=== PATIENT | male | born 1990 | race Two or more races ===

== ENCOUNTER 2016-09-27 13:22 | Inpatient (IN) | payer BC ==
[~2016-09-27] VITALS: Ht 175.3 cm; Wt 84.1 kg
--- NOTE | ~2016-09-27 | ER ---
PATIENT'S NAME: JOVON [facility] AGE: 26 Y [address] ROOM: [place] [address] LOCATION: GPCU ADMIT DATE: 09/27/2016 ER/Outpatient Report DISCHARGE DATE: FAMILY PHYSICIAN: PHYSICIAN, UNKNOWN ATTENDING PHYSICIAN: Bipin Vázquez Time of Arrival: 1320 hours. Time of Evaluation: 1320 hours. CHIEF COMPLAINT: Spontaneous pneumo. HISTORY OF PRESENT ILLNESS: The patient arrived per EMS transfer from [facility]. The patient states this morning, he got up out of bed, was feeling okay, coughed a couple of times, developed left-sided chest pain and left posterior back pain. Did go to work. The pain worsened, shortness of breath worsened. He did have a friend take him to [facility] where he was evaluated. He states his shortness of breath got worse when he is up walking around. They did a chest x-ray and found that he had a spontaneous pneumothorax. They did place a chest tube in. They called and talked with Dr. Nevarez. Dr. Nevarez had contacted Dr. Vázquez to let him know that the patient was come in to be seen and further evaluated and treated. The patient states he has never had any problems like this in the past. States he has been feeling fine prior to all this. ALLERGIES: NO KNOWN ALLERGIES. MEDICATIONS: No current medications. PAST MEDICAL HISTORY: Benign. PAST SURGICAL HISTORY: Negative. REVIEW OF SYSTEMS: All negative other than those mentioned in the HPI. PHYSICAL EXAMINATION: VITAL SIGNS: He weights 85 kg, blood pressure is 117/88, pulse of 56, respirations 22, temperature of 97.4 tympanic, O2 saturations 100% on 2 L nasal cannula. GENERAL: The patient is awake, alert, and oriented x4. PATIENT'S NAME: JOVON [facility] AGE: 26 Y [address] ROOM: [place] [address] LOCATION: GPCU ADMIT DATE: 09/27/2016 ER/Outpatient Report DISCHARGE DATE: FAMILY PHYSICIAN: PHYSICIAN, UNKNOWN ATTENDING PHYSICIAN: Bipin Vázquez SKIN: His skin is pink, warm, and dry. RESPIRATIONS: Even and nonlabored. Chest tube was connected to suction. When suction is off he does appear to have an air leak. HEART: Regular rate and rhythm. ABDOMEN: Soft, nondistended. Bowel sounds are present. No peripheral edema noted. EMERGENCY DEPARTMENT COURSE: Chest x-ray was completed at the bed side. Dr. Vázquez was contacted regarding the patient. Dr. Vázquez did come down and evaluated the patient and adjusted the chest tube. IMPRESSION: Spontaneous pneumothorax on the left. PLAN: The patient to be admitted to PCU, followed by Dr. Vázquez. SHEREEN GUERRA APRN FOR MILO NEVAREZ MD DJ/modl /[id number] I have personally evaluated this patient. I discussed the patient's care with the JUNIOR COPYWRITER and agree with the assessment and plan as documented above. Milo Nevarez MD d: 09/27/16 2223 t: 10/12/16 0816, OUTPATIENT REPORT
--- NOTE | ~2016-09-27 | HP ---
PATIENT'S NAME: JOSE SIGALA [facility] AGE: 26 Y [address] ROOM: [place] [address] LOCATION: GPCU ADMIT DATE: 09/27/2016 History & Physical DISCHARGE DATE: 10/01/2016 FAMILY PHYSICIAN: Physician, Unknown ATTENDING PHYSICIAN: Bipin Jackson DATE OF SERVICE: REASON FOR ADMISSION: Left spontaneous pneumothorax. HISTORY OF PRESENT ILLNESS: The patient is a 26-year-old white male who resides in [place]. On the morning of September 27, 2016, he woke up as usual, had a couple of cough, and instantly experienced chest pain and left-sided shoulder pain. As time went on, he developed shortness of breath. He had a patient drive him to the emergency department in [place], [place] where he was evaluated and found to have a spontaneous left-sided pneumothorax. A chest tube was placed in the emergency department at the [facility]. [facility] was contacted for transfer of the patient to our emergency department. The patient was met by Dr. Loya who evaluated the patient in the emergency department and consulted Dr. Jackson. Upon arrival, Dr. Jackson reviewed the chest x-ray taken upon the patient's arrival. There was a large left-sided pneumothorax. There was no shift of the mediastinal structures. Dr. Jackson adjusted the connections on the chest tube to the canister and a subsequent chest x-ray showed near complete expansion of the left lung. The patient was transferred to the progressive care floor. PAST MEDICAL HISTORY: Illnesses: Tobaccoism, seasonal allergies, anxiety. ALLERGIES: NO KNOWN DRUG ALLERGIES. SURGERIES/PROCEDURES: None. SOCIAL HISTORY: The patient is single. He resides in [place], [place]. He works as a manual track laborer. He smokes a pack of cigarettes a day and has done so for 10 years. He denies use of illegal drugs. He does drink beer nearly daily. FAMILY HISTORY: PATIENT'S NAME: JOSE SIGALA [facility] AGE: 26 Y [address] ROOM: [place] [address] LOCATION: GPCU ADMIT DATE: 09/27/2016 History & Physical DISCHARGE DATE: 10/01/2016 FAMILY PHYSICIAN: Physician, Unknown ATTENDING PHYSICIAN: Bipin Jackson The patient states his parents and siblings are all healthy. MEDICATIONS: None. SYSTEM REVIEW: The patient's history was reviewed and negative except for the pertinent positives in the HPI. PHYSICAL EXAMINATION: VITAL SIGNS: Blood pressure 122/60, pulse is 63, respirations 16, temp 97.9, O2 saturations 96% on room air. Height is 5 feet 9 inches. Weight is 190 pounds. GENERAL: He is pleasant, somewhat anxious. His mother, sister, and brother are present at the bedside. Patient appears his stated age. HEENT: Normocephalic with EOMI's intact. Conjunctivae clear. LUNGS: Overall clear to auscultation bilaterally. CARDIOVASCULAR: Regular rate and rhythm. ABDOMEN: Soft, nontender by 4 quadrants with positive bowel sounds throughout. EXTREMITIES: No varicosities or edema. MUSCULOSKELETAL: Good range of motion of bilateral upper and lower extremities. NEUROLOGIC: Alert and oriented x3 with symmetrical strength throughout. SKIN: No suspicious skin lesions. LABORATORY AND TEST RESULTS: X-rays as per HPI. IMPRESSION: 1. Left spontaneous pneumothorax. 2. Tobaccoism. RECOMMENDATION AND PLANS: Dr. Jackson did admit the patient to the progressive care floor until which time the left spontaneous pneumothorax has resolved. He will be started on a regular diet. We will follow up with a chest x-ray in the morning. We will start Toradol 15 mg q.6 hours x8 doses as well as [place] 5/325 one to two every 4 to 6 hours as needed for pain. Chest tube will remain to 20 cm suction. The patient and family made abreast of the plan and do agree. AMBREEN SANTIAGO APRN FOR BIPIN JACKSON DO PATIENT'S NAME: JOSE SIGALA [facility] AGE: 26 Y [address] ROOM: [id number] [place] [id number] LOCATION: [facility] ADMIT DATE: 09/27/2016 History & Physical DISCHARGE DATE: 10/01/2016 FAMILY PHYSICIAN: Physician, Unknown ATTENDING PHYSICIAN: Bipin Jackson/juliana /[id number] D: [id number] T: [id number] HISTORY & PHYSICAL
--- NOTE | ~2016-09-27 | DS ---
PATIENT'S NAME: JOSE SIGALA [facility] AGE: 26 Y [address] ROOM: [id number] [place], [place] [address] LOCATION: GPCU ADMIT DATE: 09/27/2016 Discharge Summary DISCHARGE DATE: 10/01/2016 FAMILY PHYSICIAN: Physician, Unknown ATTENDING PHYSICIAN: Bipin Vázquez HISTORY OF PRESENT ILLNESS: The patient is a 26-year-old white male, who was transferred here from the [facility] and the patient was found to have a left-sided spontaneous pneumothorax. They did place a chest tube while he was in the emergency department in [place]. He did not have resolution of his pneumothorax at that time and they sent him here for a higher level of care. He presented to our emergency department. Dr. Vázquez accepted the patient in transfer and for admission. When the patient was in the emergency department with Dr. Vázquez, a chest x-ray had been obtained upon the patient's arrival. It did show a large pneumothorax. There were some connection issues with the chest tube and after working with these connections a followup chest x-ray showed new remediation of the pneumothorax. The patient was admitted to the progressive care floor with the chest tube to suction. The following day, the morning chest x-ray revealed complete resolution of the pneumothorax and the chest tube was placed to water seal. This patient remained in-house. The subsequent chest x-ray was concerning for apical pneumothorax. Water could be heard of bubbling from the chamber. The x-ray also indicated slight movement of the internal catheter. This was repositioned and stabilized. This was discussed with the patient and his family. He remained in-house and the following day the chest x-ray still revealed a slight air leak. We did have a near code-arce situation with the patient as he was quite angry that the chest tube was not coming out and that he was not going home that day. Multiple disciplines had came to discuss this with the patient and the family. The family did leave the facility as they were upset with patient's behavior and level of anger. As the day went on, however, the patient did apologize and did calm down. The following day, his chest x-ray showed resolution of the pneumothorax. The chest tube was indeed discontinued and the patient was discharged to home. Discharge was on 10/01/2016. DISCHARGE ORDERS: Include a diet with no restrictions. Activities with no restrictions. The patient was told to remove the chest tube dressing in 48 hours. He is to not pull, push, or lift with the left upper extremity for the next 48 hours more than 5 pounds. He is to consider smoking cessation. He may shower after the dressing is removed. FINAL DIAGNOSES: Include left spontaneous pneumothorax and tobaccoism. DISCHARGE MEDICATIONS: Include no medications. PATIENT'S NAME: JOSE SIGALA [facility] AGE: 26 Y [address] ROOM: [place] [address] [facility] ADMIT DATE: 09/27/2016 Discharge Summary DISCHARGE DATE: 10/01/2016 FAMILY PHYSICIAN: Physician, Unknown ATTENDING PHYSICIAN: Bipin Vázquez The patient was discharged in stable condition. AMBREEN SANTIAGO APRN FOR DO LUKE COTTON/modl /[id number] d: 10/19/16 0945 t: 10/20/16 1216, DISCHARGE SUMMARY
--- NOTE | 2016-09-27 17:36 | NUR ---
Patient is 26 yo male admitted for spontaneous tension pneumothorax this am after he awoke, coughed a couple of times and started having chest pains. Patient has saline lock in right hand without erythema or edema noted at site. patient is a very pleasant young man. Education is given as documented. patient denies questions. pneumatics are on bilat. call light is within reach. patient denies needs. report is given to CATA Gonzalez.
--- NOTE | 2016-09-27 21:29 | NUR ---
Significant Event: A/O x3, cooperative with cares. VSS, SBP 122, HR 69, on room air. L) lateral chest tube to suction, no crepitus noted. Up with SBA. Family at bedside Follow up:
--- NOTE | 2016-09-28 05:21 | NUR ---
Significant Event: PATIENT IS A/O X3. VSS. HR 50-80'S. SBP 110-120'S. AFEBRILE. 02 SATS IN MID TO UPPER 90'S ON RA. C/O PAIN TO CHEST TUBE SITE. DANILO TORADOL GIVEN AND 1 TAB NORCO GIVEN X1 WITH RELIEF. LUNGS COARSE/CRACKLES TO LEFT SIDE. CHEST TUBE TO SUCTION WITH 33ML SEROUS DRAINAGED. NO CREPITUS NOTED. DRESSING C/D/I. UP WITH SBA. BOWELS ACTIVE. IV TO RIGHT HAND SL. Follow up: CONTINUE TO MONITOR PER PLAN OF CARE.
--- NOTE | 2016-09-28 11:56 | NUR ---
Introduced self and care management services to patient and family at bedside. Lives in [place], denies concerns about going home on discharge, denies anticipating any needs. Will follow and assist with dc planning as needs identified.
--- NOTE | 2016-09-28 16:39 | NUR ---
Significant Event: A/OX3, VSS ON RA. NO COMPLAINTS ON PAIN, PT. DOES RECEIVE SCHEDULED TORADOL 15MG Q6HR, HAS 4 DOSES LEFT. NO ADDITIONAL PAIN MEDS GIVEN. CHEST TUBE WAS PUT TO WATER SEAL, DRESSING IS C/D/I, FLUCUATIONS WITH RESPIRATIONS NOTED & SMALL AMOUNT OF BUBBLING. PT. IS UP AD PUJA IN ROOM, WALKED IN HALLS SEVERAL TIMES. CHEST XRAY IN AM, POSSIBLE D/C TO HOME TOMORROW OR THURS. SLIV TO R)HAND. Follow up: CONTINUE WITH POC.
--- NOTE | 2016-09-29 04:53 | NUR ---
Pt a/o x4. up adlib. vss on RA, afebrile. L sided ct to h2o seal- 10 cc out. chest xray this am. Last scheduled toradol given this am. Plan: ? d/c ct possible d/c this afternoon
--- NOTE | 2016-09-29 16:52 | NUR ---
Significant Event: A/Ox3. VSS on room air. R)hand IV saline locked. L) chest tube had 12ml out of serosanginous drainage. Fluctuations with resp and bubbling noted. Chest tube to suction and waterseal at midnight. Lungs clear to clear diminished in the lower lobes. Nonproductive cough. Patient had 2 tabs of norco x2 last dose around 1545 for pleural/chest tube pain. Up ad kesha in room.
--- NOTE | 2016-09-30 04:17 | NUR ---
Pt slept all noc. VSS on RA, Afebrile. CT to h2o seal since mn. up independent in room. 2 norco at hs. Plan: Hopefully d/c ct today if possible. possible d/c this afternoon
--- NOTE | 2016-09-30 16:32 | NUR ---
Significant Event: A/OX3, VSS ON ROOM AIR. PT. MUCH BETTER THIS AFTERNOON THAN THIS MORNING WHEN HE WAS TOLD HE HAD TO STAY SOME MORE DAYS D/T AIR LEAK WITH CHEST TUBE. CHEST XRAY LOOKED OKAY THIS MORNING, BUT AIR LEAK STILL REMAINS. PT. WAS GIVING GADIEL SANTIAGO THE F BOMB AND THEN IGNORED DR. JACKSON. PATIENTS FAMILY LEFT BECAUSE OF HIS YELLING AND BEING UPSET. PT. GETS UP AD PUJA IN ROOM. CHEST TUBE TO LEFT SIDE IS INTACT TO WATER SEAL, DRESSING HAS NO DRAINAGE NOTED TO SITE, 7mL DRAINAGE OUT, SMALL BUBBLING THIS AM HAS BEEN REDUCED TO OCCASIONAL BUBBLING NOW, STILL HAS FLUCTUATIONS RESPIRATIONS. GADIEL SANTIAGO CALLED WITH INFORMATION. 2 TABS OF NORCO GIVEN AT 1527 FOR PAIN. CHEST XRAY IN AM. Follow up: CONTINUE WITH POC.
--- NOTE | 2016-10-01 05:27 | NUR ---
Significant Event: Patient is alert and oriented x 3. VSS on room air. HRs in the 50s-70s. SBPs in the 100s-120s. Afebrile. Up ad kesha. Chest tube to left lateral side of chest intact. 8 mls out this shift. At beginning of shift fluctuations noted with respirations. At 0300 assessment, no fluctuations noted. Dressing is clean, dry, and intact. Right hand IV, saline locked. [place] given for pain last at 0402. Patient has been pleasant and cooperative with cares. Follow up: Chest x-ray this am.
== END 2016-10-01 12:40 | disposition disaster alternative care site (69) | DRG 201 ==
LOC: GMED 13:22 → GPCU 16:54
PROVIDERS: ADMIT Thoracic Surgery (Cardiothoracic Vascular Surgery)
DX: J93.83 Other pneumothorax (principal); F41.9 Anxiety disorder, unspecified; F17.210 Nicotine dependence, cigarettes, uncomplicated; J30.2 Other seasonal allergic rhinitis
CPT/HCPCS: J1885; J2270

== ENCOUNTER → 2016-09-27 | Outpatient (CLI) | payer BC | END | disposition disaster alternative care site (69) | LOC: GAMB 11:51 | DX: R07.9 Chest pain, unspecified (principal); J93.83 Other pneumothorax; R06.02 Shortness of breath; M54.9 Dorsalgia, unspecified; Z87.891 Personal history of nicotine dependence | CPT/HCPCS: A0422; A0425; A0426; J3010 ==